=== PATIENT | female | born 1990 | race Caucasian/White ===

== ENCOUNTER 2020-08-02 19:55 | Inpatient (IN) | payer MEDICAID, SELFPAY ==
[2020-08-02 20:06] VITALS: BP 129/83; PULSE 74; RESP 18; TEMP 37; O2SAT 96; BMI 35.7
[2020-08-02] MEDS: hyDROXYzine 25 mg Capsule 50 MG PO (21:07)
[2020-08-02] MEDS: trazodone 50 mg Tablet PO (21:07)
[2020-08-02] MEDS: ibuprofen 600 mg Tablet PO (21:08)
--- NOTE | 2020-08-02 21:09 | PC.NURSE ---
after pt was admitted, pt voiced concerns about her home medications . pt was advised that since pt has not taken said home meds for several months, the Doctor will want to see and evaluate her prior to continuing any home meds. Pt was also advised that on admission, the pt would have protocol admission meds available if needed. Pt asked if there was something to help her sleep. pt was given teaching on trazodone. Pt then asked if she was able to have Vistaril also, and something for a headache rating 4/10. Pt was given trazodone 50mg for sleep. Vistaril 50mg for anxiety, and motrin 600mg for headache. Will continue to monitor.
--- NOTE | 2020-08-02 21:37 | PC.NURSE ---
Pt noted to be resting quietly in her room, both eyes closed.
[2020-08-02 22:00] VITALS: BP 129/83; PULSE 74; RESP 16; TEMP 37; O2SAT 96
[2020-08-03 06:00] VITALS: BP 100/67; PULSE 61; RESP 18; TEMP 36.9; O2SAT 94
[2020-08-03] MEDS: venlafaxine ER (24HR) 150 mg Capsule PO (07:50)
[2020-08-03] MEDS: levothyroxine 25 mcg Tablet PO (07:50)
[2020-08-03] MEDS: nicotine 2 mg Gum BUCCAL (10:18)
[2020-08-03] MEDS: hyDROXYzine 25 mg Capsule 50 MG PO ×2 (11:06→19:33)
--- NOTE | 2020-08-03 11:07 | PC.NURSE ---
Patient came to the desk asking for medication to help with Anxiety. Patient states she feels very anxious and is walking the halls to help. Administered Vistaril PO per order. Will continue to closely monitor. DINORA ORDOÑEZ
--- NOTE | 2020-08-03 12:44 | PM.NHP ---
Providers/Chief Complaint Admitting Physician: Hans Rizo DO Chief Complaint: SI/DEPRESSION HPI NPU History of Present Illness Jocelyn Bonilla is a 29 year old female with a history of mood disorder, trauma related symptoms presenting to the emergency department with complaint of lower abdominal pain stating that she feels like it is because if she has been off of her scheduled medications for 5 months. Patient reports depressive and anxiety symptoms although she appear to be overly fixated on being restarted on medications that she was taking 5 months ago in [place] to include Xanax, Lyrica, tramadol, Ritalin. Patient does report recent psychiatric hospitalization 2 weeks ago and was started on citalopram but states that she did not tolerate the medication well and had stopped. She reports no outpatient psychiatric care since moving from [place] 5 months ago. Continues to report ongoing depressive symptoms, decreased energy and interest in her usual activities, low mood, currently denying any suicidal ideation or thoughts about self-harm. Patient denies any auditory or visual hallucinations, denies any delusions although she does report hearing muffled sounds and ongoing perseveration about worrying about her kids. Patient reports history of PTSD symptoms, currently denying any PTSD symptoms, denies any nightmares. Patient denies any past treatment with counseling/therapy or any trauma based therapies. She denies any recent substance or alcohol use although she does report past cocaine use 5 years ago on a monthly basis, denies any cannabis use, but reports rare use of alcohol, does not recall last use. Psychiatric review of systems is otherwise negative. Review of Systems General: Reports: 10 or more systems reviewed and unremarkable except in HPI and below Meds NPU Home Medications Medication Instructions Recorded Confirmed Last Taken Type alprazolam 2 mg PO QID PRN 08/02/20 08/02/20 03/14/20 History levothyroxine 25 mcg PO DAILY 08/02/20 08/02/20 03/14/20 History methylphenidate 40 mg PO DAILY 08/02/20 08/02/20 03/14/20 History methylphenidate HCl 20 mg PO TID 08/02/20 08/02/20 03/14/20 History pregabalin 75 mg PO QID PRN 08/02/20 08/02/20 03/14/20 History tramadol 50 mg PO TID PRN 08/02/20 08/02/2003/14/20 History venlafaxine 150 mg PO DAILY 08/02/20 08/02/20 03/14/20 History Allergies Allergy/AdvReac Type Severity Reaction Status Date / Time No Known Allergies Allergy Verified 08/02/20 20:15 [facility] NPU Other Psychiatric History: Other Psychiatric History: Per HPI above, reports last medication management appointment was in [place] 5 months ago Recent psychiatric hospitalization 2 weeks ago and [place], [place] Mental Status Exam MSE Comments: Appears older than stated age, overweight, unkempt, disheveled, wearing hospital attire, sitting up on her bed, calm, cooperative, fair eye contact Psychomotor activity is decreased, no agitation Speech is low volume, spontaneous, normal rate, not pressured, fair articulation I feel tired, constricted affect, not labile Alert and oriented to person, place, time, situation Memory and concentration are fair per interview Intellectual functioning appears to be average at best, based on vocabulary, interview Thought process, occasional delays, linear, no flight of ideas, no looseness of associations Thought content, no delusions, does not appear to be attending to any internal stimuli, no suicidal or homicidal ideation Insight and judgment appear to be fair to intact Vitals/I&O/Wt Last Vital Signs Temp 98.4 F 08/03/20 06:00 Pulse 61 08/03/20 06:00 Resp 18 08/03/20 06:00 BP 100/67 08/03/20 06:00 Pulse Ox 94 08/03/20 06:00 Weight last 48 hrs Weight 97.522 kg A&P Assessment and plan (1) Depressive disorder: Status: Acute (2) Anxiety disorder: Status: Acute Qualifiers: Anxiety disorder type: unspecified anxiety disorder Qualified Code(s): F41.9 - Anxiety disorder, unspecified Additional A&P Information Patient presenting with worsening depressive symptoms and anxiety symptoms with somatic complaints, reporting lower abdominal pain, recent psychiatric hospitalization but states that she did not note any improvement, questionable perceptual disturbances, overly fixated on restarting medications to include a stimulant and benzodiazepine but does not appear to have been appropriately titrated up on an antidepressant to target her depressive and anxiety symptoms. Currently not suicidal. Patient does have history of lupus for which she is on disability and could possibly compound her clinical picture to include somatic complaints. VOLUNTARY ADMIT to inpatient psychiatry START venlafaxine 225 mg daily targeting depression and anxiety START gabapentin 100 mg 3 times daily targeting somatic complaints as well as anxiety symptoms CBC CMP TSH Vitamin D level Encouraged patient to participate in unit activities to include group sessions, unit milieu Coordinate with social work manager for post discharge psychiatric follow-up and therapy Involuntary Hold Information 96 Hour Hold: 96 Hour Involuntary Admission: No Attestations NPU Medical Necessity Statement*: Require psychiatric hospitalization for medication stabilization, coordination for safe discharge Anticipate hospital stay to exceed 2 midnights Time Spent in Patient Care: Greater than 35 minutes (>than 50% of time spent in counselling and/or direct pt care on unit). Coding Level of Care Code Acute Photonics Engineering Technician for Jeramy Becerra Diagnoses Depressive disorder F32.9 Anxiety disorder F41.9 Anxiety disorder type: unspecified anxiety disorder
[2020-08-03] MEDS: gabapentin 100 mg Capsule PO ×2 (12:56→19:32)
[2020-08-03] MEDS: ibuprofen 600 mg Tablet PO (12:56)
[2020-08-03 13:09] VITALS: BP 128/79; PULSE 64; RESP 16; TEMP 37.4; O2SAT 96
[2020-08-03 13:20] LABS: Basophils # 0.1 10^3/uL (0.0-0.1); Basophils % 0.7 %; Eosinophils # 0.3 10^3/uL (0.0-0.8); Eosinophils % 3.1 %; Hematocrit 37.2 % (37.0-47.0); Hemoglobin 12.6 g/dL (11.5-15.3); Lymphocytes # 2.2 10^3/uL (0.8-4.8); Lymphocytes % 25.8 %; Mean Corpuscular HGB Conc 33.9 g/dL (30.0-36.0); Mean Corpuscular Hemoglobin 30.1 pg (28.0-34.0); Mean Platelet Volume 9.5 fL (7.4-10.4); Monocytes # 0.5 10^3/uL (0.2-0.9); Monocytes % 6.3 %; Neutrophils # 5.33 10^3/uL (1.8-7.7); Neutrophils % 63.9 %; Nucleated Red Blood Cells % 0 %; Platelet Count 329 10^3/cmm (130-400); Red Blood Count 4.18 10^6/uL (4.1-5.3); Red Cell Distribution Width 12.3 % (12.1-15.1); White Blood Count 8.4 10^3/uL (4.0-10.0)
[2020-08-03 14:00] LABS: Alanine Aminotransferase 14 U/L (0-33); Albumin Level 3.7 g/dL (3.5-5.2); Alkaline Phosphatase 34 IU/L (35-105); Anion Gap 14.1 (5-19); Aspartate Amino Transferase 12 U/L (0-32); Blood Urea Nitrogen 13 mg/dL (6-20); Carbon Dioxide 26 mmol/L (22-29); Chloride 103 mmol/L (98-107); Globulin 2.4 g/dL (1.3-4.6); Glomerular Filtration Rate 145.9 mL/min (90-130); Glucose 107 mg/dL (65-115); Osmolality Calculated 289 mOsm/kg (285-295); Potassium 4.1 mmol/L (3.5-5.1); Sodium 139 mmol/L (136-145); Thyroid Stimulating Hormone 0.76 uIU/mL (0.27-4.20); Total Bilirubin 0.2 mg/dL (0.15-1.2); Total Protein 6.1 g/dL (6.6-8.7)
[2020-08-03 19:33] VITALS: BP 114/74; PULSE 71; RESP 16; TEMP 37.2; O2SAT 95
[2020-08-03] MEDS: trazodone 50 mg Tablet PO (19:33)
--- NOTE | 2020-08-03 19:34 | PC.NURSE ---
pt at nurses desk for hs meds, pt requested med for sleep and anxiety. when pt was asked what was causing her anxiety, pt stated... it's been like an all day thing . Trazodone 50mg given for sleep and visteril 50mg given for anxiety. will continue to monitor.
[2020-08-04 06:00] VITALS: BP 115/74; PULSE 60; RESP 17; TEMP 36.9; O2SAT 96
[2020-08-04] MEDS: hyDROXYzine 25 mg Capsule 50 MG PO (07:43)
[2020-08-04] MEDS: levothyroxine 25 mcg Tablet PO (07:44)
[2020-08-04] MEDS: venlafaxine ER (24HR) 150 mg Capsule PO (07:44)
[2020-08-04] MEDS: gabapentin 100 mg Capsule PO (07:44)
--- NOTE | 2020-08-04 07:45 | PC.NURSE ---
Addendum entered by Sharon Ivy LPN 08/04/20 10:20: prn med effective no further c/o anxiety Original Note: PRN VISTARIL 50 MG GIVEN PO PER PT C/O STATED ANXIETY. WITHDRAWN AFFECT, PACING HALLWAYS. WILL CONT TO MONITOR
[2020-08-04] MEDS: nicotine 21 mg Patch 1 PATCH TRANSDERMA (10:45)
[2020-08-04 12:36] VITALS: BP 115/74; PULSE 60; RESP 17; TEMP 36.9; O2SAT 96
--- NOTE | 2020-08-04 12:39 | P.DS_ITS ---
Diagnoses at Discharge Discharge Diagnosis (1) Depressive disorder: Status: Acute (2) Anxiety disorder: Status: Acute Qualifiers: Anxiety disorder type: unspecified anxiety disorder Qualified Code(s): F41.9 - Anxiety disorder, unspecified Reason for Visit Reason for Visit: SI/DEPRESSION Hospital Course Hospital Course 29 year old female with a history of mood disorder, trauma related symptoms presenting to the emergency department with complaint of lower abdominal pain stating that she feels like it is because if she has been off of her scheduled medications for 5 months. Patient reports depressive and anxiety symptoms although she appear to be overly fixated on being restarted on medications that she was taking 5 months ago in [place] to include Xanax, Lyrica, tramadol, Ritalin. Patient continued to report some depressive symptoms, low energy, low interest and was restarted on home medication included venlafaxine 150 mg daily as well as her levothyroxine 25 mcg daily and was started on gabapentin 100 mg 3 times daily targeting her somatic complaints, chronic pain, anxiety symptoms. Patient continued to ask to be restarted on Xanax as well as some other sedating medications as well as tramadol. Patient quickly reconstituted reporting significant improvement in her mood and stated that she slept well overnight, denied any interval suicidal ideation or thoughts about self-harm. Patient denied any depressed symptoms, reports improved appetite as well as overall improved function and participated in unit milieu with no reports of any behavioral disturbances. Patient had been off of Xanax and many of her other medications for 5 months and denied any withdrawal symptoms. Patient was not suicidal and communicated being future oriented at the time of discharge and did not appear to pose an imminent threat of harm to self or others. Low to moderate risk of harm to self given no current suicidal ideation, no active psychiatric symptoms although patient's risk may be elevated if she is noncompliant with medication, medication management and counseling follow-up or if she is using substances and alcohol which may lead to unexpected, impulsive behavior. Risk mitigation included psychiatric hospitalization, medication stabilization as well as recommending to abstain from the use of any substances and alcohol. Patient was able to communicate her understanding of the need to abstain from the use of any substances and alcohol as well as the need for compliance with her medication, medication management and counseling targeting the development of more adaptive coping strategies in order to further mitigate her risk of harm to self and others. Involuntary Hold Information 96 Hour Hold: 96 Hour Involuntary Admission: No Mental Status Exam MSE Comments: Appears stated age, much better kempt and appropriately groomed than previous evaluation, calm, cooperative, interactive, good eye contact Psychomotor activity is neither increased nor decreased, no agitation Speech is normal rate and volume, spontaneous, clear articulation, not pressured I feel good, full range of affect, not labile Alert and oriented to person, place, time, situation Memory and concentration appear to be intact per interview Intellectual functioning appears to be average at best based on vocabulary, interview Thought process, linear, no flight of ideas, no looseness of association Thought content, no delusions, no hallucinations, no suicidal homicidal ideation Insight and judgment appear to be intact Discharge Data Data Completed and Pending: Pending at discharge Category Date Time Status Vitamin D 1,25 Di hydroxy Routine Lab 08/03/20 13:00 Received Labs from last 24 hours 08/03/20 08/03/20 08/03/20 13:00 13:00 13:00 WBC 8.4 RBC 4.18 Hgb 12.6 Hct 37.2 MCV 89.0 MCH 30.1 MCHC 33.9 RDW 12.3 Plt Count 329 MPV 9.5 Neut % (Auto) 63.9 Lymph % (Auto) 25.8 [place] % (Auto) 6.3 Eos % (Auto) 3.1 Baso % (Auto) 0.7 Neut # (Auto) 5.33 Lymph # (Auto) 2.2 [place] # (Auto) 0.5 Eos # (Auto) 0.3 Baso # (Auto) 0.1 Nucleated RBC % (a uto) 0 Nucleated RBCs # 0.0 Sodium 139 Potassium 4.1 Chloride 103 Carbon Dioxide 26 Anion Gap 14.1 BUN 13 Creatinine 0.5 GFR Calculation 145.9 H Glucose 107 Calculated Osmolal ity 289 Calcium 9.0 Total Bilirubin 0.2 AST 12 ALT 14 Alkaline Phosphata se 34 L Total Protein 6.1 L Albumin 3.7 Globulin 2.4 25-OH Vitamin D To melanie Pending 1,25 Dihydroxy Vit D2 Pending 1,25 Dihydroxy Vit D3 Pending TSH 0.76 Vitals: Last Vital Signs Temp 98.4 F 08/04/20 12:36 Pulse 60 08/04/20 12:36 Resp 17 08/04/20 12:36 BP 115/74 08/04/20 12:36 Pulse Ox 96 08/04/20 12:36 Discharge Plan Discharge Patient Disposition: Home Condition: Stable Prescriptions: New levothyroxine 25 mcg Tablet 25 mcg PO DAILY Qty: 30 RF: 0 gabapentin 100 mg Capsule 100 mg PO TID Qty: 90 RF: 0 venlafaxine 150 mg Capsule,Extended Release 24hr 150 mg PO DAILY Qty: 30 RF: 0 Continued venlafaxine 150 mg Capsule,Extended Release 24hr 150 mg PO DAILY RF: 0 levothyroxine 25 mcg Tablet 25 mcg PO DAILY RF: 0 Discontinued tramadol 50 mg Tablet 50 mg PO TID PRN (Reason: Pain, Moderate) RF: 0 methylphenidate 40 mg PO DAILY RF: 0 methylphenidate HCl 20 mg Tablet 20 mg PO TID RF: 0 alprazolam 2 mg Tablet 2 mg PO QID PRN (Reason: Anxiety) RF: 0 pregabalin 75 mg Capsule 75 mg PO QID PRN (Reason: pain) RF: 0 Discharge Orders: Discharge Order (Routine); Ordered 08/04/20 Ordered By: Hans Rizo Referrals: [facility] [Other] (Please Call and make appointmet as new patient. between 8 AM and 5 PM. ) Dr. Rg [facility] [Other] - 08/11/20 8:00 am ( Your appointment is for MondayAugust 11 at 8:[address] Rg. ) Discharge Diet: Regular Discharge Activity: Resume usual activity Discharge Attestations NPU Time Spent in Discharge Care*: greater than 30 min Status at Discharge: Cognitive status at discharge: cognitively intact , Behavioral status at discharge: cooperative , Functional status at discharge: independent ambulation Overall status at discharge: patient is back to baseline Coding Level of Care Code Acute Metal Spray Operator for g Fwd Diagnoses Depressive disorder F32.9 Anxiety disorder F41.9 Anxiety disorder type: unspecified anxiety disorder
[2020-08-04 12:46] VITALS: BP 125/85; PULSE 75; RESP 18; TEMP 36.8; O2SAT 97
[2020-08-10 01:17] LABS: Vit D 1,25 (Oh)2, Total 82 pg/mL (18-72); Vit D2 1,25 (Oh)2 <8 pg/mL; Vit D3 1,25 (Oh)2 82 pg/mL
== END 2020-08-04 13:48 | disposition home or self-care (01) | DRG 881 ==
PROVIDERS: Admitting Provider Psychiatry & Neurology Psychiatry; Visit Provider Psychiatry & Neurology Psychiatry
DX: F32.9 Major depressive disorder, single episode, unspecified (principal); F41.9 Anxiety disorder, unspecified; Z91.14 Patient's other noncompliance with medication regimen; F45.9 Somatoform disorder, unspecified; R10.30 Lower abdominal pain, unspecified; G89.29 Other chronic pain
CPT/HCPCS: 80053; 82652; 84443; 85025